=== PATIENT | male | born 1995 | race Two or more races ===

== ENCOUNTER 2023-01-31 19:42 | Emergency (ER) | payer OTHER ==
[~2023-01-31] VITALS: Ht 165.1 cm; Wt 114.3 kg
== END 2023-01-31 23:25 | disposition home or self-care (01) ==
LOC: ER 19:42
DX: J06.9 Acute upper respiratory infection, unspecified (principal); Z88.6 Allergy status to analgesic agent; Z20.822 Contact with and (suspected) exposure to COVID-19